=== PATIENT | male | born 1955 | race Caucasian/White ===

== ENCOUNTER 2017-03-03 09:21 | Emergency (ER) | payer OTHER ==
[~2017-03-03] VITALS: Ht 175.3 cm; Wt 65.9 kg
--- NOTE | 2017-03-03 09:20 | ED.REPORT ---
HPI-Chest Pain 40 and Over Date of Service Mar 03, 2017 ED Provider: Dr. Mendoza Pt is a 61 year old male with a hx of heart attack, HTN, CAD, hyperlipidemia presenting to the ED via EMS complaining of 5/10 chest pain onset 30-45 minutes ago. Denies SOB. The pain is on his left side and in the left chest. He reports that these symptoms do feel similar to previous chest pain he has had. Pt currently takes Lamictal, metoprolol and methadone. Pt received 4 nitro with no relief en route. Nursing Notes Stated Complaint: CHEST PAIN Chief Complaint: Chest Pain Nursing Notes Reviewed: Yes Allergies: Coded Allergies: No Known Allergies (Verified Allergy, Unknown, 08/19/16) Scheduled Adalimumab (Humira) 20 Mg/0.4 Ml Kit 20 MG SQ every other week Atorvastatin Calcium (Atorvastatin Calcium) 20 Mg Tablet 20 MG PO HS Fluoxetine (Fluoxetine) 40 Mg Capsule 40 MG PO QAM Lamotrigine (Lamotrigine) 200 Mg Tablet 200 MG PO BID Meloxicam (Meloxicam) 15 Mg Tablet 15 MG PO QPM Methadone (Methadone) 5 Mg Tablet 5 MG PO QID Take at 0800, 1200, 1600, and 2000 Metoprolol Tartrate (Metoprolol Tartrate) 25 Mg Tablet 25 MG PO BID Omeprazole (Omeprazole) 40 Mg Capsule.dr 40 MG PO MORNING Ranitidine (Zantac) 150 Mg Tablet 300 MG PO HS Scheduled PRN Nitroglycerin SL (Nitroglycerin SL) 0.4 Mg Tab.subl 0.4 MG SL Q5MIN PRN PRN CHEST PAIN General Time Seen by MD: 09:29 Chief Complaint Chest pain Hx Obtained From: Patient, EMS Arrived By: Ambulance Sudden in Onset?: Yes Onset Occurred: 31 - 45 minutes ago Symptom Duration: Since onset Location: : Chest left Quality: Painful Severity: Current: Pain level 5 out of 10 Severity: Maximum: Moderate Recent Healthcare: No recent doctor visit, No recent hospitalization Similar Sx Previous: Yes Past Medical History Past Medical History Notes: PCP: Dr. Mei Summer Sessions Director: Dr. Resendiz Neurologist: Dr. Fletcher Past Medical History Previous TN - no stenting Psoriatic arthritis Epilepsy Angina Hepatitis C Esophageal strictures status post dilatation GERD Chronic back pain Reports: Coronary artery disease, Hyperlipidemia, Hypertension Past Surgical History bilateral shoulder replacements right wrist surgery left hip surgery cardiac catheterization Right hip replacement 09/05/2015 Cardiac stent Reports: Cholecystectomy Family History no family h/o TN CHF (mother) Smoking History Current Every Day Smoker, Heavy Tobacco Smoker Social History Alcohol Use: 3-5 per day Drug Use: Denies drug use Other Social History: Good social support, , Local resident Ambulatory Status Independent Review of Systems Respiratory: Denies: Shortness of breath Cardiovascular: Reports: Chest pain GI: Denies: Nausea, Vomiting Complete sys rev & neg: except as marked. Physical Exam Initial Vital Signs Vital Signs (First) Date Time Temp Pulse Resp B/P Pulse Ox O2 Delivery O2 Flow Rate FiO2 03/03/17 09:27 36.5 52 10 103/59 99 03/03/17 11:58 Room Air Initial VS: Reviewed Head / Eyes: Atraumatic, Normocephalic, PERRL ENT: Mucous membranes moist, Conjunctiva normal, No scleral icterus Neck: Supple, Non-tender, Full range of motion Extremities: Vascular intact, Neuro intact, No swelling, No tenderness Skin: Warm, Dry, No cyanosis Neurologic: Alert, Oriented, Nonfocal Psychiatric: Mood/affect normal, Behavior normal, Normal thought content General/Constitutional: Awake, Alert Distress / Hydration: Positive: Distress mild Thin Respiratory / Chest: Breath sounds NL, Breath sounds = bilat, No respiratory distress, No rales, No rhonchi, No wheezing, No stridor, No chest tenderness Chest wall non tender Cardiovascular: Heart rate NL, Regular rhythm, Heart sounds NL, No murmurs, Peripheral circulation NL, Pulses = bilaterally, No gross BP differential Interpretation & Diagnostics Lab Results Interpretation Result Diagram: 03/03/17 0945 03/03/17 0945 Test 03/03/17 09:45 03/03/17 12:24 White Blood Count 6.6th/mm3 (3.8-10.1) Red Blood Count 4.29mil/mm3 (4.40-5.80) Hemoglobin 14.2g/dL (13.8-17.2) Hematocrit 40.8% (41.0-50.0) Mean Corpuscular Volume 95.1fL (81-100) Mean Corpuscular Hemoglobin 33.1pg (27.0-35.0) Mean Corpuscular Hemoglobin Concent 34.8% (32.0-37.0) Red Cell Distribution Width 13.5% (12.3-15.4) Platelet Count 222bil/L (150-400) Neutrophils (%) (Auto) 30.7% (40-74) Lymphocytes (%) (Auto) 49.1% (14-46) Monocytes (%) (Auto) 18.5% (4-12) Eosinophils (%) (Auto) 0% (0-5) Basophils (%) (Auto) 1.5% (0-3) D-Dimer 1.12mg/L FEU (<0.50) Sodium Level 135mEq/L (134-144) Potassium Level 3.2mEq/L (3.5-5.2) Chloride Level 97mEq/L (97-108) Carbon Dioxide Level 21mmol/L (18-29) Blood Urea Nitrogen 15mg/dL (8-27) Creatinine 1.04mg/dL (0.76-1.27) Estimat Glomerular Filtration Rate 77mL/min (>59) Glucose Level 86mg/dL (60-99) Calcium Level 9.5mg/dL (8.5-10.1) Magnesium Level 2.1mg/dL (1.6-2.6) Total Bilirubin 0.4mg/dL (0.0-1.2) Aspartate Amino Transf (AST/SGOT) 31U/L (0-50) Alanine Aminotransferase (ALT/SGPT) 26U/L (0-44) Alkaline Phosphatase 107U/L (25-160) Total Protein 7.9g/dL (6.4-8.4) Albumin 3.9g/dL (3.4-5.0) Troponin T < 0.010ug/L (0.0-0.011) ECG Interpretation ECG Interpretation: Abnormal R-wave progression, early transition. Time: 09:32 Interpreted by: ED physician Normal ECG Interpretation: Normal rate (52), Normal sinus rhythm ECG Interpretation: Repeat EKG unchanged. No ischemic changes. Time: 12:08 Interpreted by: ED physician Repeat ECG: Repeat ECG unchanged X-Ray Chest Interpretation Chest Xray Interpretation: IMPRESSION: No acute cardiopulmonary disease. Dictated by: Mick Dumont M.D. on 03/03/2017 at 11:47 View: Portable, 1 view Interpretation / Wet Read by: Interpret - Radiologist CT Chest Interpretation IMPRESSION: 1. No evidence for acute central pulmonary embolism. 2. Mild coronary atherosclerosis. 3. Mild centrilobular emphysema and diffuse interstitial prominence. Dictated by: Mick Dumont M.D. on 03/03/2017 at 11:37 Study type: CT pulm angiogram Interpretation / Wet Read by: Interpret - Radiologist Re-Eval/Medical Decision Med Decision/Clinical Course Self-limited episode of chest pain without EKG changes and serially negative troponins. D-dimer was elevated however there is no pulmonary embolism, vital signs are stable, old records were reviewed he had an inpatient admission with both an echocardiogram showed no focal wall motion analysis and a overall low risk nuclear medicine stress test (per those notes there were some technical difficulties with those tests, however he was deemed to be low risk and not thought to have been having an acute TN). Symptoms have resolved, he is ambulatory without recurrent symptoms, he will be discharged. 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 Time of Eval: 10:10 Patient Status: Condition improved Re-Evaluation/Progress Note: Pt reports that this chest pain feels similar to chest pain he was admitted for last April, but that this pain is more intense. Pain is now 4/10. Time of Eval: 11:48 Patient Status: Condition improved Re-Evaluation/Progress Note: Pt reports pain almost resolved, he got up and road tested with no recurrence of symptoms. Counseled Regarding: Diagnosis, Lab results, Need for follow-up, When/why to return to ED Discharge & Departure Primary Impression: Chest pain Chest pain type: unspecified Qualified Code: R07.9 - Chest pain, unspecified Disposition: Home Discharge Condition All VS Reviewed: Yes Condition: Improved Additional Instructions: It does not appear that you are having a heart attack. Continue your regular medication. Call your sales representative [employer] in the morning for repeat evaluation. Return to the ER if you develop severe recurrent chest pain concerning for heart attack or other concerns. Referrals: Milana Mei MD (PCP) Scribe Attestation Portions of this note were transcribed by Leena Menon. I, Dr. Mendoza personally performed the history, physical exam and medical decision-making; I reviewed and confirmed the accuracy of the information in the transcribed note. Signed by: Baudilio Carey, 03/03/2017 at 1349. copies to: Milana Mei MD, Timothy S DO Mar 03, 2017 09:19 LEENA MENON Mar 03, 2017 09:31
[~2017-03-03 09:21] MED LIST: ASPI-973 PO; ATOR20TA65 PO; FLUO40CA PO; GOLI50DI SQ; LAMO200T2 PO; MELO-253 PO; METH5TAB3 PO; METO25TA6 PO; NITR0.4T6 SL; OMEP40CA36 PO; RANI150T11 PO
[2017-03-03 09:27] VITALS: BP 103/59; PULSE 52; RESP 10; O2SAT 99
[2017-03-03] MEDS ORDERED: Ondansetron 2 mg/mL 2 mL Inj IVPUSH ONE (09:30)
[2017-03-03] MEDS ORDERED: Nitroglycerin 2% 1 Gm Ointment TOPICAL ONE (09:30)
[2017-03-03] MEDS ORDERED: ADAL20KI SQ (09:42)
[2017-03-03 09:55] LABS: BASOPHILS % (AUTO) 1.5 % (0-3); EOSINOPHILS % (AUTO) 0 % (0-5); MONOCYTES % (AUTO) 18.5 % (4-12); Mean Corpuscular Hemoglobin 33.1 pg (27.0-35.0); Mean Corpuscular Volume 95.1 fL (81-100); NEUTROPHILS % (AUTO) 30.7 % (40-74); Platelet Count 222 bil/L (150-400)
[2017-03-03 10:24] LABS: TROPONIN T 0.01 ug/L (0.0-0.011)
[2017-03-03 10:35] LABS: Magnesium 2.1 mg/dL (1.6-2.6)
--- NOTE | 2017-03-03 11:44 | DRSVH ---
PROCEDURE: CT ANGIO CHEST PULMONARY EMBOLISM ([id number]) INDICATIONS: sharp left chest pain, elevated ddimer TECHNIQUE: After the administration of intravenous contrast, 2 mm thick sections acquired from the pulmonary api cesar to the posterior costophrenic angles. 3-dimensional maximum intensity projection (MIP) coronal a nd sagittal reformats were then acquired through the thorax. For radiation dose reduction, the follo wing was used: automated exposure control, adjustment of mA and/or kV according to patient size. COMPARISON: [facility], CR, XR CHEST 1VW (PORTABLE), 03/03/2017, 9:49. [facility], CR, XR CHEST 1VW (PORTABLE), 07/06/2016, 12:49. [facility], CT, CT ANGIO CHEST PE, 09/10/2015, 14:13. FINDINGS: Image quality: Excellent. Pulmonary arteries: Pulmonary arteries are normal in size, and demonstrate no intraluminal filling d efects to suggest central pulmonary embolism. Lungs and pleura: Mild centrilobular emphysema and bilateral interstitial thickening. Bibasilar depe ndent atelectasis. No acute pulmonary opacity. No pleural effusions or pneumothorax. Central and pe ripheral airways are patent. Mediastinum: Heart size is normal, without pericardial effusion. There is mild to moderate coronary artery calcification consistent with atherosclerosis. No mediastinal or hilar adenopathy. Thoracic aorta is normal in caliber and enhancement. Esophagus is normal in caliber, without hiatal hernia. Bones and chest wall: No suspicious bony lesions. Ribs and thoracic spine appear intact throughout. Thyroid gland is normal. No axillary or supraclavicular adenopathy. Abdomen: Visualized upper abdominal solid organs appear normal in the early arterial phase of enhanc ement. IMPRESSION: 1. No evidence for acute central pulmonary embolism. 2. Mild coronary atherosclerosis. 3. Mild centrilobular emphysema and diffuse interstitial prominence. Dictated by: Mick Dumont M.D. on 03/03/2017 at 11:37 Approved by: Mick Dumont M.D. on 03/03/2017 at 11:42
--- NOTE | 2017-03-03 11:49 | DRSVH ---
PROCEDURE: X-RAY CHEST ONE VIEW, PORTABLE ([id number]) INDICATIONS: chest pain TECHNIQUE: One view of the chest was acquired. COMPARISON: [facility], CT, CT ANGIO CHEST PE, 03/03/2017, 11:04. [facility] , CR, XR CHEST 1VW (PORTABLE), 07/06/2016, 12:49. FINDINGS: Surgical changes and devices: None. Lungs and pleura: No pleural effusions or pneumothorax. Lungs are clear. Mediastinum: Mediastinal contours appear normal. Heart size is normal. Bones and chest wall: No suspicious bony lesions. Overlying soft tissues appear unremarkable. IMPRESSION: No acute cardiopulmonary disease. Dictated by: Mick Dumont M.D. on 03/03/2017 at 11:47 Approved by: Mick Dumont M.D. on 03/03/2017 at 11:48
[2017-03-03 11:58] VITALS: BP 116/61; PULSE 54; RESP 16; O2SAT 98
[2017-03-03 13:35] VITALS: BP 116/61; PULSE 54; RESP 16; O2SAT 98
== END 2017-03-03 13:37 | disposition home or self-care (01) ==
LOC: SED 09:21
DX: R07.89 Other chest pain (principal); I11.9 Hypertensive heart disease without heart failure; I25.2 Old myocardial infarction; I25.10 Atherosclerotic heart disease of native coronary artery without angina pectoris; G40.909 Epilepsy, unspecified, not intractable, without status epilepticus; K21.9 Gastro-esophageal reflux disease without esophagitis; E78.5 Hyperlipidemia, unspecified; F17.200 Nicotine dependence, unspecified, uncomplicated; Z95.5 Presence of coronary angioplasty implant and graft
CPT/HCPCS: 36415; 71010; 71275; 80053; 83735; 84484; 85025; 85378; 93005; 96374; 96375; 99285; J2270; J2405; Q9967

== ENCOUNTER 2017-06-12 10:33 | Inpatient (IN) | payer OTHER ==
[2017-06-12] VITALS (9 sets, daily range): BP systolic 93–152; BP diastolic 57–85; PULSE 50–62; RESP 13–20; O2SAT 93–98
[~2017-06-12] VITALS: Ht 175.3 cm; Wt 66.0 kg
[~2017-06-12 10:33] MED LIST changes: +ADAL40PE SQ; +ATOR20TA PO; -ATOR20TA65 PO; +Bupivacaine Liposome 1.3% 20 mL Inj INFILTRATE SCH; +CeFAZolin Inj 2 GM in IV Premix 1 EACH IV ONE; +Gentamicin 40 mg/mL 2 mL Inj IRRIGATION ONE; +LAMO150T PO; -LAMO200T2 PO; +Lactated Ringer's 1,000 ML IV SCH; -MELO-253 PO; +MELO7.5O PO; +NITR0.4T SL; -NITR0.4T6 SL; -RANI150T11 PO; +Sodium Chloride LOK Flush 10 mL Syringe IVFLUSH PRN
[2017-06-12] MEDS ORDERED: Ropivacaine-PF 0.5% 30 mL Inj ONE (10:34)
[2017-06-12] MEDS ORDERED: CeFAZolin 2 Gm/50 mL D5W Duplex Bag IV ONE (10:38)
[2017-06-12] MEDS ORDERED: fentaNYL-PF 50 mCg/mL 2 mL Inj ONE ×2 (10:55→15:43)
[2017-06-12] MEDS ORDERED: Lactated Ringer's 1,000 ML IV ONE (11:15)
--- NOTE | 2017-06-12 11:19 | PCM.HPANE ---
Patient Data Date of Service: Jun 12, 2017 Surgeon Admitting Provider: Attending Provider:Garrison March MD Primary Care Physician:Milana Mei MD Other Provider:Ekta Griffiths Anesthesia Reason for Visit Right Shoulder Arthritis Ht/WT & BMI Height (Feet): 5 Height (Inches): 9 Weight (Kilograms): 66.04 Body Mass Index 21.00 Allergies Coded Allergies: No Known Allergies (Verified Allergy, Unknown, 06/06/17) Past Anesthesia History Anesthesia History: Denies:: Abnormal Airway, Anesthesia Reactions, Difficult Intubation, Fam Anesthesia Reaction, Fam Malignant Hypertherm, Malignant Hyperthermia Diabetes History Hx Diabetes?: No MRSA MRSA: No Medications Blood Thinner: Aspirin Hypertension Medication: Yes Home Meds Incl Beta Brandon: Yes Date Beta Brandon Taken: Jun 11, 2017 Time Beta Brandon Taken: 18:00 Previous Beta Brandon Dose >24: Previous Dose <24 Hours Reported Medications Omeprazole 40 Mg Capsule.dr40 Mg PO DAILY Ref 0 06/06/17 Nitroglycerin SL (Nitrostat)0.4 Mg Tab.subl0.4 Mg SL Q5MIN PRN For Chest Pain # 1 BOTTLE 06/06/17 Metoprolol Tartrate 25 Mg Xxmdho07 Mg PO BID 30 Days Ref 0 06/06/17 Methadone 5 Mg Tablet5 Mg PO QID 06/06/17 Meloxicam 7.5 Mg/5 Ml Oral.susp15 Mg PO DAILY 30 Days 06/06/17 Lamotrigine (Lamictal)150 Mg Jxychh297 Mg PO DAILY #30 TABLET Ref 0 06/06/17 Adalimumab (Humira)40 Mg/0.8 Ml Pen.ij.kit40 Mg SQ t0alnqm 06/06/17 Fluoxetine 40 Mg Iodsqoi29 Mg PO DAILY Ref 0 06/06/17 Atorvastatin (Lipitor)20 Mg Uxcphm10 Mg PO DAILY Ref 0 06/06/17 Aspirin 81 Mg Stnqbo87 Mg PO DAILY Ref 0 06/06/17 Discontinued Reported Medications Golimumab (Simponi)50 Mg/0.5 Ml Grqcbhv48 Mg SQ qmonthly 06/06/17 Adalimumab (Humira)20 Mg/0.4 Ml Kit20 Mg SQ every other week 03/03/17 Methadone 5 Mg Tablet5 Mg PO QID Take at 0800, 1200, 1600, and 2000 08/19/16 Meloxicam 15 Mg Eqlico32 Mg PO QPM 07/06/16 Metoprolol Tartrate 25 Mg Nbrlln01 Mg PO BID 07/06/16 Fluoxetine 40 Mg Jqcwldc91 Mg PO QAM 07/06/16 Atorvastatin Calcium 20 Mg Sggjca17 Mg PO HS 07/06/16 Omeprazole 40 Mg Capsule.dr40 Mg PO MORNING 05/01/16 Lamotrigine 200 Mg Cqnpya151 Mg PO BID 09/05/15 Ranitidine (Zantac)150 Mg Ubymzo567 Mg PO HS 09/01/15 Nitroglycerin SL 0.4 Mg Tab.subl0.4 Mg SL Q5MIN PRN CHEST PAIN 02/03/15 History History of ENT Problems?: Yes HEENT History: Positive for:: Dysphagia (doesnt swallow well - solids ) Hearing Problem Denies:: Abnormal Airway Cataracts Difficult Intubation Sinus Problem Denture Type: Full- Upper Partial- Lower Teeth Condition: Missing Teeth Hx of Heart Problems?: Yes Cardiovascular History: Positive for:: Cardiac Surgery (HEART CATH 10/2013) Chest Pain (ED 02/2017- non cardiac) Edema Hypertension Denies:: AICD Atrial Fibrillation Congestive Heart Failure Irregular Heartbeat Pacemaker Valvular Heart Disease (echo 2016- ef 55-60%) Hx of Respiratory Problem?: No Respiratory History: Denies:: Asthma COPD Cough Dyspnea Emphysema Hemoptysis Oxygen Administration Pneumonia (many years ago) Tuberculosis Use of C-PAP Machine Hx Neurologic Problems?: Yes Neurological History: Positive for:: Headaches (cluster headaches) Seizures (last seizure 5 years ) Denies:: Alzheimer's Disease CVA Dementia Parkinson's Disease Hx of GI Problems?: Yes Hx of Problems?: No Genitourinary History: Denies:: HX of Hemodialysis Kidney Stones Urinary Tract Infection HX of Peritoneal Dialysis: No Male Hx: Denies:: Prostate Problems Scrotal Mass Testicular Surgery Skin History: Positive for:: History Skin Disorders? (psoriasis) Denies:: Pressure Ulcers Hx Musculoskeletal Problems?: Yes Musculoskeletal History: Positive for:: Degenerative Joint Joint Replacement (ramila hip replacement, left hip sepideh prosthetic fx 2015) Musculoskeletal Trauma (right shoulder current admission problem) Osteoarthritis Denies:: Back Injury Fibromyalgia Myasthenia Gravis Systemic Lupus Hx of Psycho/Social Problems?: Yes Psycho Social History: Positive for:: Anxiety Hx Depression Hx Surgeries?: Yes (hip replacement x 2, cholecystectomy, shoulder surgery ) Hx Any Other Health Problems?: Yes Other History: Positive for:: Hospitalization Denies:: Cancer Endocrine Disease Thyroid Disease History Blood Transfusions: Denies:: Blood Transfuse Reaction Blood Transfusions Hx Diabetes: No Hx Alcohol Use: No (past hx of, not currently)Hx Substance Use: No Smoking Status: Current Every Day Smoker Heavy Tobacco Smoker Have You Smoked inLast 12 mo: Yes (half pack or less daily) Stop/Bang S-Snoring: Do You Snore Loudly: No T-Tired: feel tired, fatigued: No O-Obsered: Observed not breath: No P-Blood Pressure: treated: Yes B- Body Mass Index > 35 kg/m2: No A- Age over 50: Yes N- Neck Large Circumference: No G- Gender Male: Yes ARYAN Total Score: 3 ARYAN Risk Assessment: Low Risk, <3 Yes Risk Assessment Category Category 1A: Patient has history of documented sleep apnea, and HAS NOT received any narcotic, sedative or anesthesia administration during this stay. Category 1B: Patient has history of documented sleep apnea, and HAS received any narcotic , sedative or anesthesia administration during this stay Category 2: Patient has SUSPECTED Obstructive Sleep Apnea, and HAS received any narcotic , sedative or anesthesia administration during this stay. Category 3: Patient has SUSPECTED Obstructive Sleep Apnea and HAS NOT received narcotic, sedative or anesthesia administration during this stay. Category 4: Outpatient in Procedural Areas with known sleep apnea or who screen positive for High Risk via the STOP/BANG questionnaire. Exam Exam General Appearance: Alert, Oriented X3, Cooperative, No Acute Distress HEENT/AIRWAY: MP 2, Neck Movement (normal), Mouth Opening (normal) Lungs: Clear to Auscultation, Normal Air Movement Heart: Exam Unremarkable, Regular Rate/Rhythm, No Murmurs/Rubs/Gallops Plan Impression Patient chart reviewed, patient interviewed and anesthestic plan with risks, benefits, and alternatives discussed, and informed consent obtained. NPO per Anesth. Guidelines: Yes ASA Physical Status: ASA3 Severe Disease Anesthetic Plan: GA, Regional Block Bene/Risks/Altern/Consents: Yes HP Complete Prior to Induction: Yes Adam Barajas MD Jun 12, 2017 10:59 William Hare MD Jun 12, 2017 11:19
[2017-06-12] MEDS: Acetaminophen IV 1,000 MG in IV Premix 1 EACH IV SCH (11:35)
--- NOTE | 2017-06-12 11:40 | PCM.ORTHOP ---
Orthopedic Operative Report Date of Service: Jun 12, 2017 Pre Operative Diagnosis Right shoulder degenerative joint disease , partial rotator cuff tear Post Operative Diagnosis Same Procedure Right total shoulder arthroplasty, open biceps tenodesis Surgeon Surgeon: Garrison March MD Assistants:Bill Nava Indication for Procedure Right shoulder degenerative joint disease Findings Per dictation Details of Procedure Implant: Arthrex univers vaultlock size medium glenoid, stem size 11mm with 52/ 20 head The risks, benefits, indications and alternatives, including non-operative management of open reduction and plating were discussed with the patient in detail. The patient understood this operation would be strictly for pain control and would not necessarily improve the function of the arm. The patient voiced understanding of the risks and agreed to proceed. All questions were answered to the patients satisfaction. Verbal and written consent were obtained. Description of Operation: The patient was brought to the operating room. Time out was performed in the presence of the Orthopedic and the toy consultant. Preoperative antibiotics were given. Interscalene block performed by anesthesia. General anesthesia was administered. The patient was placed in a beachchair position. The right arm was prepped and draped in the usual sterile fashion. A standard deltopectoral approach was made. Blunt dissection was carried through the interval to expose the subscapularis muscle after retracting the conjoined tendon medially. Care was taken to not damage nearby neurovascular structures. The anterior humeral circumflex vessels were ligated. Rodriguez scissors were used to cut through the rotator interval to expose the anatomic neck of the humerus. The subscapularis tendon was tagged using # 1 Ethibond sutures. The subscapularis tendon was cut longitudinally using a Bovie. The shoulder was slowly externally rotated while peeling the inferior capsule off of the humeral neck until the shoulder was dislocated and the humeral head was exposed. There were several small loose bodies in the subscapularis recess which were removed. There was some noted erosion and flattening of the humeral head. Extensive osteophytes were present over the periphery of the humeral head. Mild dysplasia of the head was seen as evidenced by the increased inclination of the head with a history of rheumatoid arthritis. The subscapularis was tucked medially. The osteophytes around the humeral head were removed using an osteotome and mallet to expose the anatomic neck. The supraspinatus and infraspinatus were found to be intact and attached to the greater tuberosity. A neck cutting guide was placed and then the cut was made with 30 degrees of retroversion using a saw. The neck was sequentially broached to the proper fit. The head trial were placed until the proper fit was obtained. A head protector sleeve was placed on the cut surface. Using a Triatt retractor the glenoid was exposed. Circumferential exposure of the glenoid from the 1 o'clock position to the 7 o'clock position was done using a Bovie taking care to stay close to the bone. The glenoid was sized and then reamed appropriately. Peg holes were drilled along with the center hole. A trial implant was placed which fit well. After removing the trial, the wound was irrigated. The peg holes were filled with manually pressurized cement and the above mentioned glenoid component was impacted until an excellent fit was obtained. Attention was then taken to the humeral head. The humeral head trial was placed the the shoulder stability was verified after reduction and found to be appropriate. The trial head and stem were removed and proper inclination was noted. Multiple #2 Fiber-wire sutures were placed in the lateral subscapularis stump on the lesser tuberosity and then through the rim of the humeral neck. The implant was assembled on the back table. The wound was irrigated. The humeral implant was impacted into the humerus until the proper fit was obtained. The shoulder was reduced and excellent stability was tested and verified. The subscapularis was then repaired using the aforementioned Fiber- wire sutures and also an 0-Vicryl suture. A proximal biceps tenotomy was performed after a distal tenodesis was performed to the pec major.. The rotator interval was closed. Hemostasis was achieved. The wound was irrigated with copious saline. Local cocktail was used which included bupivicaine. Gentamicin was injected into the joint. IV transexamic acid was used preop and intraop. The wound was then closed in layers, dressed appropriately and the shoulder was placed in an immobilizer. The patient was extubated without difficulty and transferred to the PACU in stable condition. Nonweightbearing to affected upper extremity. Please leave sling on at all times. You may remove sling 3 times a day to move the elbow wrist and fingers. Do not move your shoulder. PROM only, IR to body, ER to 0 degrees, FF to 90 degrees, ABD to 0 degrees. Keep your arm at neutral, NO external rotation of the arm, no resisted IR of the arm. Please keep the affected extremity elevated when possible. You may use ice and/or heat as needed for comfort. Follow-up in 2 weeks with me with 2-view xrays and for suture removal and Steri -Strip application. Follow-up with me at 6 weeks. You will have pain medications , medication for constipation and aspirin 81 qdaily X 2 weeks (which you already take). Grafts, Implants: Implants-See Implant Record Complications There were no periprocedural complications identified. Condition Stable Anesthetic Administered: GA Catheters: None Output, Estimated Blood Loss: 100 Blood Admin during surgery: No Surgical Cast or Splint: Other Surgical Specimen Removed: No Specimen sent to Pathology: No copies to: Garrison March MD, Christopher L MD Jun 12, 2017 11:40
[2017-06-12] MEDS ORDERED: Hip/Knee Infiltration Cocktail IM SCH ×7 (12:00)
[2017-06-12] MEDS ORDERED: Lactated Ringer's 1,000 ML IV SCH (12:44)
[2017-06-12] MEDS ORDERED: Lactated Ringer's 500 ML IV PRN (12:44)
[2017-06-12] MEDS ORDERED: EPHEDrine Sulfate 50 mg/mL Inj IVPUSH PRN (12:45)
[2017-06-12] MEDS ORDERED: fentaNYL-PF 50 mCg/mL 2 mL Inj IVPUSH PRN (12:45)
[2017-06-12] MEDS ORDERED: HYDROmorphone 1 mg/mL Inj IVPUSH PRN (12:45)
[2017-06-12] MEDS ORDERED: MetoCLOpramide 5 mg/mL 2 mL Inj IVPUSH PRN (12:45)
[2017-06-12] MEDS ORDERED: Dexamethasone 4 mg/mL Inj IVPUSH PRN (12:45)
[2017-06-12] MEDS ORDERED: Ondansetron 2 mg/mL 2 mL Inj IVPUSH PRN (12:45)
[2017-06-12] MEDS ORDERED: Phenylephrine 10,000 mCg/mL Inj IVPUSH PRN (12:45)
[2017-06-12] MEDS ORDERED: Bacitracin 50,000 unit Inj IRRIGATION ONE (13:07)
[2017-06-12] MEDS ORDERED: Gentamicin 40 mg/mL 2 mL Inj INJ ONE (13:50)
[2017-06-12] MEDS ORDERED: Polyethylene Glycol (PEG) 17 Gm Powder PO PRN (14:45)
[2017-06-12] MEDS ORDERED: diphenhydrAMINE 25 mg Capsule PO PRN (14:45)
[2017-06-12] MEDS ORDERED: Magnesium Hydroxide 10 mL Oral Concentration PO PRN (14:45)
[2017-06-12] MEDS ORDERED: Sodium Biphos-Phos 133 mL Enema RECTAL PRN (14:45)
--- NOTE | 2017-06-12 15:14 | DRSVH ---
PROCEDURE: X-RAY RIGHT SHOULDER, MINIMUM TWO VIEWS ([id number]) INDICATIONS: post op TECHNIQUE: 2 views of the shoulder were acquired. COMPARISON: [facility], CR, XR SHOULDER MIN 2VW RT, 01/31/2017, 10:54. [facility], CR, SHOULDER MIN 2VW (RT), 06/22/2014, 14:26. FINDINGS: Bones: No fractures or dislocations. No suspicious bony lesions. Visualized ribs appear intact. R ight shoulder arthroplasty has been performed, earlier today, with normal alignment established by th is postoperative examination. Soft tissues: No suspicious soft tissue calcifications. IMPRESSION: Expected postsurgical changes after right shoulder arthroplasty. Dictated by: David Veras M.D. on 06/12/2017 at 15:11 Approved by: David Veras M.D. on 06/12/2017 at 15:12
--- NOTE | 2017-06-12 15:33 | PCM.ANEP1 ---
Post Anesthesia PACU Phase 1 Assessment Vital Signs Vital Signs Date Time Temp Pulse Resp B/P Pulse Ox O2 Delivery O2 Flow Rate FiO2 06/12/17 15:12 57 17 104/63 94 Nasal Cannula 3 06/12/17 14:55 53 16 111/66 96 Nasal Cannula 3 06/12/17 14:50 50 17 115/64 98 Simple Mask 10 06/12/17 14:45 52 13 105/68 98 Simple Mask 10 06/12/17 14:40 36.9 53 17 123/72 98 Simple Mask 10 06/12/17 11:28 36.4 62 20 117/85 96 Room Air Anesthetic Administered: GA Level of Alertness: Awake, talking HULL's with Equal Strength: No Pain: No Nausea or Vomiting: No CV Function & Hydration Stable: Yes Airway Device: Oxygen Delivery: Simple Mask Lungs: Clear to Auscultation, Normal Air Movement PACU Phase 2 Assessment Complications: No Follow up Care: N/A Patient Instructions Provided: N/A Adam Barajas MD Jun 12, 2017 15:33
[2017-06-12] MEDS ORDERED: Propofol 10,000 mCg/mL 20 mL Inj ONE (15:43)
[2017-06-12] MEDS ORDERED: Rocuronium 10 mg/mL 5 mL Inj ONE (15:43)
[2017-06-12] MEDS ORDERED: Phenylephrine/NS 100 mCg/mL 10 mL Syringe IVPUSH ONE (15:43)
[2017-06-12] MEDS ORDERED: EPHEDrine/NS 5 mg/mL 5 mL Syringe ONE (15:43)
[2017-06-12] MEDS ORDERED: Glycopyrrolate 0.2 MG/ML 1mL Inj ONE (15:43)
[2017-06-12] MEDS ORDERED: Neostigmine 1 mg/mL 10 mL Inj ONE (15:43)
[2017-06-12] MEDS: 0.9% Sodium Chloride 1,000 ML IV SCH (16:49)
[2017-06-12] MEDS: HYDROcodone-APAP 5-325 mg Tablet PO PRN ×2 (16:58→23:07)
--- NOTE | 2017-06-12 17:00 | NUR ---
received to room 1026 post op shoulder replacement. ortho signs OK, pt comfortable, denies nausea, VSS, he felt like he wanted to urinate but was unsuccessful. will continue to monitor that
[2017-06-12] MEDS ORDERED: Pantoprazole 40 mg ER24 Tablet PO SCH (17:36)
[2017-06-12] MEDS: Senna-Docusate 8.6-50 mg Tablet PO SCH (20:42)
[2017-06-12] MEDS: CeFAZolin Inj 2 GM in IV Premix 1 EACH IV SCH ×2 (20:42→21:51)
[2017-06-13 00:35] VITALS: BP 145/78; PULSE 64; RESP 16; O2SAT 95
[2017-06-13] MEDS: HYDROcodone-APAP 5-325 mg Tablet PO PRN (03:03)
[2017-06-13] MEDS: 0.9% Sodium Chloride 1,000 ML IV SCH ×2 (03:20→10:41)
[2017-06-13 04:30] VITALS: BP 168/82; PULSE 60; RESP 16; O2SAT 97
[2017-06-13] MEDS ORDERED: Bupivacaine Liposome 1.3% 20 mL Inj INFILTRATE ONE (06:00)
[2017-06-13 06:13] LABS: BASOPHILS % (AUTO) 0.1 % (0-3); EOSINOPHILS % (AUTO) 0.1 % (0-5); MONOCYTES % (AUTO) 12.6 % (4-12); Mean Corpuscular Hemoglobin 33.3 pg (27.0-35.0); Mean Corpuscular Volume 97.1 fL (81-100); NEUTROPHILS % (AUTO) 72.6 % (40-74); Platelet Count 183 bil/L (150-400)
--- NOTE | 2017-06-13 07:19 | NUR ---
Activity Pt OOB this shift X3 for urinal at bedside and to BR with SBA, pt tolerates very well. NWB to right arm/shoulder. C/o pain 6-9 out of 10. Pt getting PO Vicodin, & Methadone. Pt jolted himself out of sleep and disturbing right extremity and needed 2mg IV Morphine for break through pain.
[2017-06-13 07:45] VITALS: BP 151/93; PULSE 63; RESP 17; O2SAT 93
[2017-06-13] MEDS: Senna-Docusate 8.6-50 mg Tablet PO SCH (08:00)
[2017-06-13] MEDS ORDERED: lamoTRIgine 100 mg Tablet PO SCH (08:30)
--- NOTE | 2017-06-13 09:42 | NUR ---
Evaluation completed. Please go to "Notes" then click on "Assessments and Notes" (bottom left corner of screen). Then select appropriate discipline tab on top of screen.
--- NOTE | 2017-06-13 09:53 | PCM.PNORTH ---
Subjective Date of Service: Jun 13, 2017 Visit Information: Reason for Visit Right Shoulder Arthritis Surgery/Surgery Date Post-Op Day # 1 Date of Admission: Jun 12, 2017 at 15:42 Hospital Day # Subjective Patient states he is concerned about his pain control. He states he has had poor pain control throughout the evening and into this morning. He states he takes known 20 mg twice a day at home and has taken narcotics chronically. He states he has a high tolerance to narcotic pain medications. Postop General: No Shortness of Breath, No Chest Pain Pain Management: PO Objective Exam Objective Patient sitting up in bed Vital Signs and I/O Vital Sign - Last Date Time Temp Pulse Resp B/P Pulse Ox O2 Delivery O2 Flow Rate FiO2 06/13/17 07:45 37.2 63 17 151/93 93 Room Air 06/12/17 15:48 3.00 Intake and Output 06/12/17 06/12/17 06/13/17 Cumulative From/Thru 15:00 23:00 07:00 06/06/17 12:21 - 06/13/17 06:32 Intake Total 1120 ml 525 ml 1657 ml 3302 ml Output Total 160 ml 500 ml 425 ml 1085 ml Balance 960 ml 25 ml 1232 ml 2217 ml Intake Oral 400 ml 454 ml 854 ml IV Total 1120 ml 125 ml 1203 ml 2448 ml Output Urine Total 500 ml 425 ml 925 ml Estimated Blood Loss 160 ml 160 ml # Bowel Movements 0 0 Lab & Micro Results Laboratory Tests Test 06/13/17 05:20 White Blood Count 10.0th/mm3 (3.8-10.1) Red Blood Count 3.78mil/mm3 (4.40-5.80) Hemoglobin 12.6g/dL (13.8-17.2) Hematocrit 36.7% (41.0-50.0) Mean Corpuscular Volume 97.1fL (81-100) Mean Corpuscular Hemoglobin 33.3pg (27.0-35.0) Mean Corpuscular Hemoglobin Concent 34.3% (32.0-37.0) Red Cell Distribution Width 14.0% (12.3-15.4) Platelet Count 183bil/L (150-400) Neutrophils (%) (Auto) 72.6% (40-74) Lymphocytes (%) (Auto) 14.4% (14-46) Monocytes (%) (Auto) 12.6% (4-12) Eosinophils (%) (Auto) 0.1% (0-5) Basophils (%) (Auto) 0.1% (0-3) Result Diagram: 06/13/17 0520 General Appearance: Alert, Oriented X3, Cooperative, No Acute Distress Extremities: Distal Pulses Palpable, No Compartment Syndrom Noted Postop Sensory Motor: Distal Motor Intact, Movement in Fingers, Distal Sensation Intact, NVI Distally SURGICAL WOUND : Wound Location/Description Perioperative dressings clean dry and intact. Catheters: None Assessment & Plan Impression Postop day #1 right total shoulder arthroplasty Problems: Plan Weightbearing: Strict nonweightbearing with the right upper extremity. DVT prophylaxis: Aspirin 81 mg daily Immobilization: Remain in the UltraSling at all times including while sleeping. May remove sling 3 times a day to work on range of motion to the elbow. Do not move your shoulder. PROM only, IR to body, ER to 0 degrees, FF to 90 degrees, ABD to 0 degrees. Keep arm at neutral, NO external rotation of the arm, no resisted IR of the arm. Wound care: Keep dressings clean dry and intact. Do not remove. Analgesia: Continue ER at home methadone regimen. I have given him Percocet 10/ 625 for breakthrough. I have written it for every 4 hours as needed, do not take more than instructed. Ice frequently to reduce swelling and pain. Discharge plan: Discharge home today. Follow-up in [address] March with 2-view xrays and for suture removal and Steri-Strip application. Follow-up with Dr. March at 6 weeks. Dominique Harper PA-C Jun 13, 2017 09:53
--- NOTE | 2017-06-13 09:56 | PCM.DIORTH ---
Ortho Discharge Instruction Date of Service: Jun 13, 2017 Dates of Hospitalization Date of Hospital Admission Jun 12, 2017 at 15:42 Providers Admitting Physician: Garrison March MD Primary Care Physician: Milana Mei MD Attending Physician: Garrison March MD Activity Discharge Activity-General: Be up and about, Ice incision 3-5 time/day for 20min Right Upper Extremity: Non-weight bearing Dressing and Incisional Care Discharge Dressing Care: Keep dressing clean, dry & intact Additional Instructions Discharge Instructions Weightbearing: Strict nonweightbearing with the right upper extremity. DVT prophylaxis: Aspirin 81 mg daily Immobilization: Remain in the UltraSling at all times including while sleeping. May remove sling 3 times a day to work on range of motion to the elbow. Do not move your shoulder. PROM only, IR to body, ER to 0 degrees, FF to 90 degrees, ABD to 0 degrees. Keep arm at neutral, NO external rotation of the arm, no resisted IR of the arm. Wound care: Keep dressings clean dry and intact. Do not remove. Analgesia: Continue ER at home methadone regimen. I have written for Percocet 10/625 for breakthrough. I have written it for every 4 hours as needed, do not take more than instructed. Ice frequently to reduce swelling and pain. Follow-up in [address] March with 2-view xrays and for suture removal and Steri-Strip application. Follow-up with Dr. March at 6 weeks. Dominique Harper PA-C Jun 13, 2017 09:56
[2017-06-13] MEDS ORDERED: HYDR25CA PO (09:57)
[2017-06-13] MEDS ORDERED: OXYC-466 PO (09:57)
--- NOTE | 2017-06-13 10:43 | PCM.DC.ORT ---
Discharge Summary Date of Service: Jun 13, 2017 Date of Hospital Admission: Jun 12, 2017 at 15:42 Date of Surgery: Jun 12, 2017 Date of Discharge: Jun 13, 2017 Reason for Hospitalization: Right shoulder osteoarthritis Procedures Performed: Right total shoulder arthroplasty Hospital Course: The patient was admitted to the hospital on 06/12/2017 and underwent the above procedure. Antibiotic prophylaxis consisting of Ancef and vancomycin. The surgeon was Dr. March. Patient tolerated the procedure well and was transferred to recovery room in stable condition. Davis was discontinued on postop day 1. Patient had physical therapy to work on ambulation and transfers. Weightbearing as tolerated with walker. Pain was managed with Dilaudid, Percocet, Vistaril, Toradol. DVT prophylaxis: Aspirin 81mg daily and SCDs. Hospital course was uncomplicated. Patient was able to perform adequately enough to be discharged home on postop day 1. Follow-up: at [facility] 2 weeks postop for wound check with Dr. March and at [address] March with x-ray. Diagnosis at Time of Discharge Status post right total shoulder arthroplasty Problems: Disposition: Weightbearing: Strict nonweightbearing with the right upper extremity. DVT prophylaxis: Aspirin 81 mg daily Immobilization: Remain in the UltraSling at all times including while sleeping. May remove sling 3 times a day to work on range of motion to the elbow. Do not move your shoulder. PROM only, IR to body, ER to 0 degrees, FF to 90 degrees, ABD to 0 degrees. Keep arm at neutral, NO external rotation of the arm, no resisted IR of the arm. Wound care: Keep dressings clean dry and intact. Do not remove. Analgesia: Continue ER at home methadone regimen. I have written for Percocet 10/625 for breakthrough. I have written it for every 4 hours as needed, do not take more than instructed. Ice frequently to reduce swelling and pain. Follow-up in [address] March with 2-view xrays and for suture removal and Steri-Strip application. Follow-up with Dr. March at 6 weeks. Adalimumab (Humira) 40 Mg/0.8 Ml Pen.ij.kit 40 MG SQ [id number] Aspirin (Aspirin) 81 Mg Tablet 81 MG PO DAILY Atorvastatin (Lipitor) 20 Mg Tablet 20 MG PO DAILY Fluoxetine (Fluoxetine) 40 Mg Capsule 40 MG PO DAILY Hydroxyzine Pamoate (Vistaril) 25 Mg Capsule 25 MG PO Q6H PRN PRN For Insomnia Lamotrigine (Lamictal) 150 Mg Tablet 150 MG PO DAILY Meloxicam (Meloxicam) 7.5 Mg/5 Ml Oral.susp 15 MG PO DAILY Methadone (Methadone) 5 Mg Tablet 5 MG PO QID Metoprolol Tartrate (Metoprolol Tartrate) 25 Mg Tablet 25 MG PO BID Nitroglycerin SL (Nitrostat) 0.4 Mg Tab.subl 0.4 MG SL Q5MIN PRN PRN For Chest Pain Omeprazole (Omeprazole) 40 Mg Capsule.dr 40 MG PO DAILY oxyCODONE-Acetaminophen 10-325 mg (oxyCODONE-Acetaminophen 10-325 mg) 1 Each Tablet 1 TABLET PO Q4H PRN PRN For Pain Dominique Harper PA-C Jun 13, 2017 10:43
[2017-06-13 12:11] VITALS: BP 132/81; PULSE 64; RESP 18; O2SAT 99
--- NOTE | 2017-06-13 12:24 | NUR ---
Social Work- Brief Note/Discharge/Multidisciplinary Rounds Data: EMR reviewed. Pt is on day 1 of hospitalization for right shoulder replacement. 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 Pt is going to discharge today. Pt is POD 1. Pt's insurance is [facility]. Pt's PCP is Milana Mei MD. SW met with pt at bedside regarding discharge plan, SW role explained. Pt alert and oriented x3. Pt resides in [place] with his in a home where he is independent at baseline. Pt drives and uses no DME at baseline. Pt's Living Will is completed and pt's is decision maker, SW encouraged pt to bring in copy. Pt agreeable. Pt will discharge home with his to transport via POV. No concerns for capacity for self-care or ADLs. No discharge needs identified. Assessment: Pt who is independent at baseline. Plan: Pt will discharge home with his to transport via POV. No concerns for capacity for self-care or ADLs. No discharge needs identified. Nicolette Otero MSW
--- NOTE | 2017-06-13 12:33 | NUR ---
Discharge To home via private vehicle with at 12:30. Steady transfer to wheelchair. IV discontinued intact. Pt and express understanding of all discharge instructions and care notes, including wound care, followup and medications. Rx given. All belongings sent with pt.
== END 2017-06-13 12:32 | disposition home or self-care (01) | DRG 483 ==
LOC: SAS 10:33 → OSC 15:42
PROVIDERS: ADMIT Orthopaedic Surgery; ATTEND Orthopaedic Surgery
PROC: 0LS30ZZ Reposition Right Upper Arm Tendon, Open Approach (ICD-10-PCS; 2017-06-12)
PROC: 0RRJ0JZ Replacement of Right Shoulder Joint with Synthetic Substitute, Open Approach (ICD-10-PCS; principal; 2017-06-12 12:00)
DX: M19.011 Primary osteoarthritis, right shoulder (principal); I10 Essential (primary) hypertension; M75.111 Incomplete rotator cuff tear or rupture of right shoulder, not specified as traumatic; Z79.82 Long term (current) use of aspirin